=== PATIENT | male | born 1990 | race African-American/Black ===

== ENCOUNTER 2024-08-17 06:46 | Emergency (ER) | payer OTHER, SELFPAY ==
--- NOTE | ~2024-08-17 | CT_ITS ---
Non-contrast Head CT History: Head injury Technique: Axial non-contrast imaging of the brain was performed. Dose reduction technique was used on this scan by utilizing automated exposure control and iterative reconstruction technique. The dose -length product (DLP) was 1210.67 mGy-cm. Findings: There is no evidence of intracranial hemorrhage, mass lesion, or acute infarct. Brain par enchyma appears normal. The ventricles and subarachnoid spaces are normal in size. The calvarium ap pears normal. The visualized paranasal sinuses and mastoid air cells are clear. Impression: No significant abnormality seen. Reviewed, dictated and finalized at location . Impression: No significant abnormality seen.
[2024-08-17 06:44] VITALS: BP 120/75; PULSE 85; RESP 16; TEMP 36.6; O2SAT 99
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
[2024-08-17 08:05] VITALS: BP 100/60; PULSE 81; RESP 15; O2SAT 100
--- NOTE | 2024-08-17 08:08 | PC.NURSE ---
Pt discharged but difficulty arousing pt due to fatigue. Discussed w/ EDP and chargemaster analyst and letting pt continue to rest. VSS. Non labored breathing.
--- NOTE | 2024-08-17 08:50 | PC.NURSE ---
This RN discussed dc instructions and RXs sent to pharm after PD left the room. Pt verbalized understanding and signed paperwork. Pt then attempted to lay back on bed and pulled covers over himself. This RN discussed it was time for discharge and assisted w/ clothing - put shirt on patient and placed jeans and shoes next to him after turning jeans out. Pt then covered himself w/ a blanket again. This RN was unable to get patient to leave after discharge and notified the cupola charger who instructed I call security. Security is currently at bedside and will assist pt to waiting room. Pt declined w/c to waiting room when offered by this RN, pt stated Nah, I'm fine, I can walk.
== END 2024-08-17 08:54 | disposition home or self-care (01) ==
PROVIDERS: Emergency Provider Emergency Medicine
DX: S00.81XA Abrasion of other part of head, initial encounter (principal); V44.5XXA Car driver injured in collision with heavy transport vehicle or bus in traffic accident, initial encounter
CPT/HCPCS: 70450; 99284